=== PATIENT | male | born 1955 | race Caucasian/White ===

== ENCOUNTER 2016-09-19 12:18 | Emergency (ER) | payer OTHER ==
[~2016-09-19] VITALS: Ht 190.5 cm; Wt 114.5 kg
[2016-09-19 12:27] VITALS: TEMP 37.4; Ht 190.5 cm; Wt 114.5 kg
[2016-09-19] MEDS ORDERED: SODIUM CHLORIDE 0.9% 500ML 500 ML IV STA (14:51)
[2016-09-19] MEDS ORDERED: ONDANSETRON INJ 2 MG/ML 2 ML VIAL IV STA (14:51)
[2016-09-19] MEDS ORDERED: MoRPHine SULFATE 10 MG/ML CARP/VIAL IV STA (14:51)
[2016-09-19 15:07] LABS: BASO % 0.2 %; BASO ABS # 0.02 K/uL (0-0.2); COMPLETE YES; HEMATOCRIT 46.5 % (42-52); IG% 0.2 %; LYMPH % 15.3 %; LYMPH ABS # 1.48 K/uL (1.2-3.4); MEAN CELL VOLUME 92.1 fL (80-100); MEAN CORPUSCULAR HEMOGLOBIN 32.1 pg (25-34); MEAN CORPUSCULAR HGB CONC 34.8 g/dl (32-36); MEAN PLATELET VOLUME 10.1 fL (7.4-10.4); MONO % 7.5 %; NEUT % 75.8 %; PLATELET COUNT 184 K/uL (130-400); RED BLOOD COUNT 5.05 M/uL (4.7-6.1); WHITE BLOOD COUNT 9.65 K/uL (4.8-10.8)
[2016-09-19] MEDS ORDERED: FIBER PO (15:07)
[2016-09-19] MEDS ORDERED: TAMS0.4C38 PO (15:07)
[2016-09-19] MEDS ORDERED: SIMV20TA2 PO (15:07)
[2016-09-19] MEDS ORDERED: MULT-1056 PO (15:07)
[2016-09-19] MEDS ORDERED: ASPI81TA28 PO (15:07)
[2016-09-19] MEDS ORDERED: OMEG10007 PO (15:07)
[2016-09-19] MEDS ORDERED: TOLT1CAP3 PO (15:07)
[2016-09-19] MEDS ORDERED: OPTIRAY 320 IV PRN (15:15)
[2016-09-19 15:27] LABS: BUN/CREATININE RATIO 10.5 (10-20); CALCIUM 10.6 mg/dl (8.5-10.1); CREATININE 1.2 mg/dl (0.60-1.40); POTASSIUM 3.7 mmol/L (3.5-5.1)
[2016-09-19 15:28] LABS: URINE APPEARANCE CLEAR (CLEAR); URINE BILIRUBIN NEG (NEG); URINE COLOR YELLOW; URINE EPITHELIAL CELL AUTO 0-5 /lpf (0-5); URINE NITRITE NEG (NEG); URINE SPECIFIC GRAVITY 1.012 (1.000-1.030); UROBILINOGEN NEG (NEG); ZZUR CULT IF INDIC CLEAN CATCH NO
[2016-09-19 15:32] LABS: MANUAL MICROSCOPIC REQUIRED? NO; REVIEW REQ? NO
--- NOTE | 2016-09-19 16:04 | DIAGNOSTIC IMAGING REPORT ---
ABDOMEN AND PELVIS CT WITH IV CONTRAST CT DOSE: 743.87 mGy.cm HISTORY: Pelvic pain lower abd pain TECHNIQUE: Multiaxial CT images of the abdomen and pelvis were performed following the use of intravenous contrast. COMPARISON STUDY: None. FINDINGS: Lung bases are clear. Several hepatic cysts are present. Mild fatty infiltration of liver. Small gallstone the region of the gallbladder neck. Pancreas appears uniform. Mild fullness of the renal collecting systems bilaterally. This may be secondary to a distended bladder and associated lateral obstructive change. Prostate is enlarged and somewhat inhomogeneous raising the possibility of prostatitis. Mild nonspecific enteritis. Several loops of distal small bowel showing a slight degree of hyperemia and wall thickening. No evidence for abscess collection or obstruction. IMPRESSION: 1. Bladder distention with mild secondary fullness of the renal collecting systems and ureters bilaterally raising the possibility of bladder outlet obstruction.. 2. Inhomogeneous prostate raise the possibility of prostatitis. 3. Several hepatic cysts. 4. Small gallstone. . 5. Mild nonspecific enteritis. Electronically signed by: Prosper Thompson M.D. 09/19/2016 4:03 PM Dictated Date/Time: 09/19/2016 3:59 PM
[2016-09-19 17:33] VITALS: BP 140/71; PULSE 78; O2SAT 96
--- NOTE | 2016-09-19 18:57 | EMERGENCY ROOM VISIT NOTE ---
History Report prepared by Kaya: Brianna Galindo Under the Supervision of: Dr. Sean Resendiz D.O. First contact with patient: 14:40 Chief Complaint: URINARY SYMPTOMS Stated Complaint: PRORTATITIS, INCREASED FREQ,BLOATING,NAUSEA,CRAMPI Nursing Triage Summary: I was unable to urinate about 2 weeks ago, they gave me cipro It didnt really help. now unable to have a bowel movement. pain across the lower back. had bm yesterday. went to pcp was placed on flomax. now urinating all the time. History of Present Illness The patient is a 60 year old male who presents to the Emergency Room with complaints of persistent abdominal pain starting last week. A couple weeks ago, he was placed on Cipro for a UTI/prostatitis. He then had no problems urinating , but has not moved his bowels. He was unable to urinate earlier this week until 4 days ago, he was prescribed Flomax. He has been able to urinate since. He urinates frequently. He has abdominal pain and corresponding lower back pain. He is burping and passing gas normally. He had a bowel movement yesterday , but only produced a small amount of stool. He has had nausea. He denies any fever. His testicles feel swollen, but he is not experiencing any pain. He no longer has dysuria. Patient denies fevers or dysuria. He notes the frequency has decreased. Source of History: patient Onset: last week Position: abdomen Timing: other (persistent) Associated Symptoms: + back pain, + nausea, + urinary symptoms (frequent urination), No fevers Review of Systems See HPI for pertinent positives & negatives. A total of 10 systems reviewed and were otherwise negative. Past Medical & Surgical Medical Problems: (1) UTI (urinary tract infection) Family History Diabetes mellitus FH: gallbladder disease Hypertension Social History Smoking Status: Never Smoker Alcohol Use: other (6 pack/week) Marital Status: Housing Status: lives with significant other Current/Historical Medications Scheduled Aspirin (Aspirin Ec), 81 MG PO QAM Fiber Laxative (Fiber Laxative), 1 TAB PO QAM Fish Oil (Sundance-3), 1 CAP PO QAM Multiple Vitamins W/ Minerals (Multivitamin Men 50+), 1 TAB PO QAM Simvastatin (Zocor), 20 MG PO QAM Tamsulosin Hcl (Flomax), 0.4 MG PO QAM Tolterodine Tartrate (Tolterodine Tartrate ER), 4 MG PO QAM Allergies Coded Allergies: No Known Allergies (Unverified , 09/19/16) Physical Exam Vital Signs Date Time Temp Pulse Resp B/P Pulse Ox O2 Delivery O2 Flow Rate FiO2 09/19/16 17:33 78 18 140/71 96 09/19/16 15:08 79 16 153/90 96 Room Air 09/19/16 12:27 37.4 90 18 163/95 97 Physical Exam GENERAL: sitting up in bed, uncomfortable appearing, non-toxic EYE EXAM: normal conjunctiva OROPHARYNX: no exudate, no erythema, lips, buccal mucosa, and tongue normal and mucous membranes are moist NECK: supple, no nuchal rigidity, no adenopathy, non-tender LUNGS: Clear to auscultation. Normal chest wall mechanics HEART: no murmurs, S1 normal and S2 normal ABDOMEN: abdomen soft, normo-active bowel sounds, no masses, no rebound or guarding. Minimal suprapubic tenderness to palpation. BACK: Back is symmetrical on inspection and there is no deformity, no midline tenderness, no CVA tenderness. : testicles are nontender, no appreciable hernia, normal uncircumcised genitalia. SKIN: no rashes and no bruising UPPER EXTREMITIES: upper extremities are grossly normal. LOWER EXTREMITIES: No pitting edema. NEURO EXAM: Normal sensorium, cranial nerves II-XII grossly intact, normal speech, no gross weakness of arms, no gross weakness of legs. Medical Decision & Procedures ER Provider Diagnostic Interpretation: Radiology results have been interpreted by the radiologist and reviewed by me. ABDOMEN AND PELVIS CT WITH IV CONTRAST CT DOSE: 743.87 mGy.cm HISTORY: Pelvic pain lower abd pain TECHNIQUE: Multiaxial CT images of the abdomen and pelvis were performed following the use of intravenous contrast. COMPARISON STUDY: None. FINDINGS: Lung bases are clear. Several hepatic cysts are present. Mild fatty infiltration of liver. Small gallstone the region of the gallbladder neck. Pancreas appears uniform. Mild fullness of the renal collecting systems bilaterally. This may be secondary to a distended bladder and associated lateral obstructive change. Prostate is enlarged and somewhat inhomogeneous raising the possibility of prostatitis. Mild nonspecific enteritis. Several loops of distal small bowel showing a slight degree of hyperemia and wall thickening. No evidence for abscess collection or obstruction. IMPRESSION: 1. Bladder distention with mild secondary fullness of the renal collecting systems and ureters bilaterally raising the possibility of bladder outlet obstruction.. 2. Inhomogeneous prostate raise the possibility of prostatitis. 3. Several hepatic cysts. 4. Small gallstone. . 5. Mild nonspecific enteritis. Electronically signed by: Prosper Thompson M.D. 09/19/2016 4:03 PM Dictated Date/Time: 09/19/2016 3:59 PM Laboratory Results 09/19/16 14:50 Red Blood Count 5.05, Mean Corpuscular Volume 92.1, Mean Corpuscular Hemoglobin 32.1, Mean Corpuscular Hemoglobin Concent 34.8, Mean Platelet Volume 10.1, Neutrophils (%) (Auto) 75.8, Lymphocytes (%) (Auto) 15.3, Monocytes (%) (Auto) 7.5, Eosinophils (%) (Auto) 1.0, Basophils (%) (Auto) 0.2, Neutrophils # (Auto) 7.31, Lymphocytes # (Auto) 1.48, Monocytes # (Auto) 0.72, Eosinophils # (Auto) 0.10, Basophils # (Auto) 0.02 09/19/16 14:50 Test 09/19/16 14:50 09/19/16 15:10 White Blood Count 9.65 K/uL (4.8-10.8) Red Blood Count 5.05 M/uL (4.7-6.1) Hemoglobin 16.2 g/dL (14.0-18.0) Hematocrit 46.5 % (42-52) Mean Corpuscular Volume 92.1 fL (80-100) Mean Corpuscular Hemoglobin 32.1 pg (25-34) Mean Corpuscular Hemoglobin Concent 34.8 g/dl (32-36) Platelet Count 184 K/uL (130-400) Mean Platelet Volume 10.1 fL (7.4-10.4) Neutrophils (%) (Auto) 75.8 % Lymphocytes (%) (Auto) 15.3 % Monocytes (%) (Auto) 7.5 % Eosinophils (%) (Auto) 1.0 % Basophils (%) (Auto) 0.2 % Neutrophils # (Auto) 7.31 K/uL (1.4-6.5) Lymphocytes # (Auto) 1.48 K/uL (1.2-3.4) Monocytes # (Auto) 0.72 K/uL (0.11-0.59) Eosinophils # (Auto) 0.10 K/uL (0-0.5) Basophils # (Auto) 0.02 K/uL (0-0.2) RDW Standard Deviation 42.5 fL (36.4-46.3) RDW Coefficient of Variation 12.8 % (11.5-14.5) Immature Granulocyte % (Auto) 0.2 % Immature Granulocyte # (Auto) 0.02 K/uL (0.00-0.02) Anion Gap 9.0 mmol/L (3-11) Est Creatinine Clear Calc Drug Dose 88.2 ml/min Estimated GFR () 75.2 Estimated GFR (Non- 64.9 BUN/Creatinine Ratio 10.5 (10-20) Calcium Level 10.6 mg/dl (8.5-10.1) Total Bilirubin 1.4 mg/dl (0.2-1) Direct Bilirubin 0.3 mg/dl (0-0.2) Aspartate Amino Transf (AST/SGOT) 23 U/L (15-37) Alanine Aminotransferase (ALT/SGPT) 39 U/L (12-78) Alkaline Phosphatase 71 U/L (45-117) Total Protein 7.2 gm/dl (6.4-8.2) Albumin 3.6 gm/dl (3.4-5.0) Lipase 116 U/L (73-393) Urine Color YELLOW Urine Appearance CLEAR (CLEAR) Urine pH 5.0 (4.5-7.5) Urine Specific [place] 1.012 (1.000-1.030) Urine Protein NEG (NEG) Urine Glucose (UA) NEG (NEG) Urine Ketones 1+ (NEG) Urine Occult Blood 1+ (NEG) Urine Nitrite NEG (NEG) Urine Bilirubin NEG (NEG) Urine Urobilinogen NEG (NEG) Urine Leukocyte Esterase NEG (NEG) Urine WBC (Auto) 1-5 /hpf (0-5) Urine RBC (Auto) 0-4 /hpf (0-4) Urine Hyaline Casts (Auto) 1-5 /lpf (0-5) Urine Epithelial Cells (Auto) 0-5 /lpf (0-5) Urine Bacteria (Auto) NEG (NEG) Laboratory results per my review. Medications Administered Medications (Trade) Dose Ordered Sig/Isidro Route Start Time Stop Time Status Last Admin Dose Admin Sodium Chloride (Nss 500ml) 500 ml @ 999 mls/hr Q31M STAT IV 09/19/16 14:51 09/19/16 15:21 DC 09/19/16 14:51 999 MLS/HR Morphine Sulfate (MoRPHine SULFATE INJ) 6 mg NOW STAT IV 09/19/16 14:51 09/19/16 14:53 DC 09/19/16 15:04 6 MG Ondansetron HCl (Zofran Inj) 4 mg NOW STAT IV 09/19/16 14:51 09/19/16 14:53 DC 09/19/16 15:04 4 MG ED Course ED COURSE: Vital signs were reviewed and showed hypertension. The patients medical record was reviewed The above diagnostic studies were performed and reviewed. ED treatments and interventions as stated above. 1442: The patient was evaluated in room C4. A complete history and physical examination was performed. 1451: Zofran Inj 4 mg IV, Morphine Sulfate 6 mg IV, NSS 500 ml @ 999 mls/hr IV. 1643: I reevaluated the patient. He is getting a Noel catheter. 1703: I discussed the patient's case with Dr. Akhtar, [facility] - urology. She agrees with the outpatient treatment plan and the patient will follow up with her. 1708: Upon reevaluation, the patient is resting comfortably. I discussed my findings with the patient and he understands and agrees with the treatment plan. Based on the patients age, coexisting illnesses, exam and lab findings the decision to treat as an outpatient was made. The patient remained stable while under my care. The patient appeared well at the time of discharge. Medical Decision Differential diagnoses includes but is not limited to gastritis, peptic ulcer disease, GERD, gallbladder disease, pancreatitis, small bowel obstruction, acute coronary syndrome, pericarditis, ischemic bowel, irritable bowel disease, irritable bowel syndrome, appendicitis, diverticulitis, malignancy, hernia, urinary tract infection, torsion, perforation, trauma, infectious. Patient is a 60-year-old male who presents to the ER for lower abdominal pain associated with constipation. Patient admits to recently been treated with antibiotics for UTI versus prostatitis. Labs showed no significant leukocytosis or anemia. BMP was unremarkable. T bili was slightly elevated at 1.4. LFTs and lipase are normal. UA was negative. CT of the abdomen and pelvis shows heterogeneous prostate. Bladder scan shows large amount retention. Noel was placed in a 1900 MLS was removed. Patient had complete resolution of his symptoms. Discussed case and findings with Dr. Akhtar from urology. She agreed with follow-up in one week and hold on any additional antibiotics at this time. Discussed with Pt concerning signs and symptoms to watch out for. Pt was instructed to follow up with their PCP and discussed with the patient their option to return to the ED at anytime for persistent or worsening symptoms. The appropriate anticipatory guidance and out-patient management, including indications for return to the emergency department, were explained at length to the patient and understood. Consults Time Called: 1700 Consulting Physician: Dr. Akhtar [facility] - urology Returned Call: [phone] I discussed the patient's case with her. She agrees with the treatment plan and the patient will follow up with her. Impression Primary Impression: Urinary retention Additional Impression: Noel catheter in place Scribe Attestation The scribe's documentation has been prepared under my direction and personally reviewed by me in its entirety. I confirm that the note above accurately reflects all work, treatment, procedures, and medical decision making performed by me. Departure Information Dispostion Home / Self-Care Referrals Prosper Quispe M.D. (PCP) Debora Akhtar .MD Forms HOME CARE DOCUMENTATION FORM, IMPORTANT VISIT INFORMATION Patient Instructions ED Retention Urinary Male, [facility] Additional Instructions Please follow up with your primary care doctor with in the next 24 hours. Any worsening of your symptoms, please return to the ED immediately. This includes fevers greater than 100.4, worsening pain, no urine output in the bag, or any other concerning signs or symptoms from your standpoint. Please follow up with urology within 1 week. Call the office tomorrow morning to schedule appointment. Problem Qualifiers
== END 2016-09-19 17:34 | disposition home or self-care (01) ==
LOC: C.EDB 12:23 → C.EDC 17:34
DX: R33.9 Retention of urine, unspecified (principal); R11.0 Nausea; M54.5 Low back pain